=== PATIENT | female | born 1950 | race Two or more races ===

== ENCOUNTER 2018-01-09 13:26 | Outpatient (CLI) | payer MEDICARE ==
[~2018-01-09] VITALS: Ht 154.9 cm; Wt 102.5 kg
[2018-01-09 13:44] VITALS: BP 135/76
[2018-01-09] MEDS ORDERED: SIMVASTATIN40 MG ORAL (13:50)
[2018-01-09] MEDS ORDERED: AMLODIPINE BESYL5 MG ORAL (13:50)
[2018-01-09] MEDS ORDERED: METOPROLOL SUCC50 MG ORAL (13:50)
[2018-01-09] MEDS ORDERED: NORCO 5-325 TA1 EACH ORAL (13:50)
[2018-01-09] MEDS ORDERED: ASPIRIN EC81 MG ORAL (13:50)
--- NOTE | 2018-01-09 14:30 | GI Initial Consult Note ---
History of Present Illness General Date patient seen: Jan 09, 2018 Time patient seen: 14:24 Referring physician: LENNOX Reason for Consultation: ABDOMINAL PAIN Present Illness HPI 67 year old female patient presents today with diffused abdominal pain and nausea. Patient reports that the pain may be food related. She had a colonoscopy back in 2016. Denies any unintentional weight loss or changes in dietary habits. No signs of abuse or neglect. Patient is not fall risk. Home Meds Reported Medications Hydrocodone Bit/Acetaminophen 5-325* ([place] 5-325*) 1 Each Tablet, 1 TAB ORAL Q4H PRN for For Pain, TAB 0 Refills 01/09/18 Simvastatin (ZOCOR) 40 Mg Tablet, 40 MG ORAL BEDTIME, TAB 01/09/18 Aspirin Ec* (ASPIRIN EC*) 81 Mg Tablet.dr, 81 MG ORAL DAILY, TAB 01/09/18 Metoprolol Succinate* (METOPROLOL SUCCINATE*) 50 Mg Tab.er.24h, 50 MG ORAL DAILY , TAB 01/09/18 Amlodipine Besylate* (AMLODIPINE BESYLATE*) 5 Mg Tablet, 5 MG ORAL DAILY, TAB 01/09/18 Med list reviewed/reconciled: Yes Allergies: Coded Allergies: No Known Allergies (Unverified , 01/09/18) Patient History History Provided By: Patient, Medical Record PMH Narrative HTN HLD Sciatica pain Past Surgical History: Abdominal Surgery, unknown Social History: Reports: other - caffiene; Denies: smoking, alcohol use, drug use Review of Systems All Other Systems: negative except mentioned in HPI Physical Exam Vital Signs Date Time Temp Pulse Resp B/P (MAP) Pulse Ox O2 Delivery O2 Flow Rate FiO2 01/09/18 13:44 98.3 63 16 135/76 96 Sp02 EP Interpretation: reviewed, normal General Appearance: well appearing, no apparent distress, alert Head: normocephalic EENT: PERRL/EOMI, normal ENT inspection Neck: supple Respiratory: normal breath sounds, no respiratory distress Cardiovascular: normal rate Gastrointestinal: normal inspection, non tender, soft, normal bowel sounds, non -distended Rectal: deferred Genitourinary: no CVA tenderness Musculoskeletal: normal inspection, back normal Neurologic: normal inspection, alert, oriented x3, responsive Psychiatric: normal inspection, judgement/insight normal, memory normal Skin: normal inspection, normal color, no rash, warm/dry, palpation normal, well hydrated Lymphatic: normal inspection, no adenopathy GI: Plan Problems: (1) Abdominal pain (2) Nausea (3) HTN (hypertension) (4) HLD (hyperlipidemia) (5) Sciatic neuropathy Plan EGD/colonoscopy scheduled 01/23/18. - CLD & (Nulytely/Suprep/Movi-Prep) prep instructions given and acknowledged by patient. - NPO @ [place] day prior procedure explained. Will follow with additional recs post procedure. Seen with Dr. Renteria. Thank you for this patient referral. The patient was seen and examined at bedside and all new and available data was reviewed in the patients chart. I agree with the above findings, impression and plan. (Patient seen earlier today. Signature stamp does not reflect patient encounter time.). - MD Rola [facility] [employer] UNDERWRITER Jan 09, 2018 14:30
== END 2018-01-09 13:56 | disposition home or self-care (01) ==
LOC: PAN 13:26
DX: R10.9 Unspecified abdominal pain (principal); R11.0 Nausea; I10 Essential (primary) hypertension; E78.5 Hyperlipidemia, unspecified; G57.00 Lesion of sciatic nerve, unspecified lower limb
CPT/HCPCS: 99202

== ENCOUNTER 2018-01-23 08:07 | Day surgery (SDC) | payer MEDICARE ==
[2018-01-23] VITALS (9 sets, daily range): BP systolic 109–139; BP diastolic 71–94
[~2018-01-23] VITALS: Ht 154.9 cm; Wt 99.8 kg
--- NOTE | 2018-01-23 06:27 | Anethesia Preoperative Eval ---
Anesthesia Pre-op PMH/ROS General Date of Evaluation: Jan 23, 2018 Time of Evaluation: 06:25 Anesthesiologist: rafiq ASA Score: ASA 3 Mallampati Score Class I : Soft palate, uvula, fauces, pillars visible Class II: Soft palate, uvula, fauces visible Class III: Soft palate, base of uvula visible Class IV: Only hard plate visible Mallampati Classification: Class II Surgeon: sai Diagnosis: abdominal pain, colon screening Surgical Procedure: egd/colonoscopy Anesthesia History: none Family History: no anesthesia problems Allergies: Coded Allergies: No Known Allergies (Unverified , 01/09/18) Medications: see eMAR Patient NPO?: Yes Past Medical History Cardiovascular: Reports: HTN, other - hyperlipidemia, Gastrointestinal/Genitourinary: Reports: other - abdominal pain, nausea Neurologic/Psychiatric: Reports: other - sciatic neuropathy Musculoskeletal/Integumentary: Reports: other Other: obesity Anesthesia Pre-op Phys. Exam Physician Exam Constitutional: NAD Neurologic: CN 2-12 intact Cardiovascular: RRR Respiratory: CTA Gastrointestinal: S/NT/ND Airway Exam Mallampati Score: Class II MO: limited Neck: flexible TMD: 2fb ROM: limited Anesthesia Pre-op A/P Risk Assessment & Plan Assessment: asa3 Plan: mac Status Change Before Surgery: No Pre-Antibiotics Drug: Zakia Wong MD Jan 23, 2018 06:27
[~2018-01-23 08:07] MED LIST: AMLODIPINE BESYL5 MG ORAL; ASPIRIN EC81 MG ORAL; Atropine Inj 1mg/10ml Syr IV PRN; DiphenhydrAMINE 50mg/ml Inj IVP PRN; METOPROLOL SUCC50 MG ORAL; Midazolam 2mg/2ml Inj IVP PRN; NORCO 5-325 TA1 EACH ORAL; SIMVASTATIN40 MG ORAL; fentaNYL 100 mcg/2 mL IV PRN
[2018-01-23] MEDS ORDERED: IBUPROFEN600 MG ORAL (11:14)
[2018-01-23] MEDS ORDERED: Lidocaine 1% MPF 10mg/ml 5ml ONE (11:30)
[2018-01-23] MEDS ORDERED: Atropine Sulfate 0.4mg/ml inj ONE (11:30)
[2018-01-23] MEDS ORDERED: Propofol 200mg/20ml IV ONE (11:30)
--- NOTE | 2018-01-23 11:30 | Pre-Procedure Note/Attestation ---
Pre-Procedure Note/Attestation Complete Prior to Procedure Planned Procedure: not applicable Procedure Narrative: esophagogastroduodenoscopy and colonoscopy Indications for Procedure Pre-Operative Diagnosis: screening colon, GERD Attestation I attest that I discussed the nature of the procedure; its benefits; risks and complications; and alternatives (and the risks and benefits of such alternatives ), prior to the procedure, with the patient (or the patient's legal sales representative adding machines). I attest that, if there was a reasonable possibility of needing a blood transfusion, the patient (or the patient's legal sales representative adding machines) was given the [facility] standardized written summary, pursuant to the [place] Blood Safety Act ([place] Health and Safety Code # 1645, as amended). I attest that I re-evaluated the patient just prior to the surgery and that there has been no change in the patient's H&P, except as documented below: Suhas Renteria MD Jan 23, 2018 11:30
--- NOTE | 2018-01-23 11:31 | Short Stay Surgery H&P ---
History of Present Illness History of Present Illness Chief Complaint see recent consult note HPI Chinyere Gill is a 67 year old female who was admitted on for Abdominal Pain, Colon Screening Patient History Allergies: Coded Allergies: No Known Allergies (Unverified , 01/09/18) Medication History Scheduled Amlodipine Besylate* (Amlodipine Besylate*), 5 MG ORAL DAILY, (Reported) Aspirin Ec* (Aspirin Ec*), 81 MG ORAL DAILY, (Reported) Ibuprofen* (Motrin*), 200 MG ORAL THREE TIMES A DAY, (Reported) Metoprolol Succinate* (Metoprolol Succinate*), 50 MG ORAL DAILY, (Reported) Simvastatin (Zocor), 40 MG ORAL BEDTIME, (Reported) Discontinued Medications Hydrocodone Bit/Acetaminophen 5-325* ([place] 5-325*), 1 TAB ORAL Q4H PRN for For Pain, (Reported) Discontinued Reason: Pt stopped taking med Physical Exam Vital Signs Last Vital Signs Date Time Temp Pulse Resp B/P (MAP) Pulse Ox O2 Delivery O2 Flow Rate FiO2 01/23/18 10:55 97.6 61 18 135/71 97 Room Air Plan Attestation Are the patient's medical conditions optimized for surgery? Suhas Renteria MD Jan 23, 2018 11:31
--- NOTE | 2018-01-23 12:02 | Endoscopy Procedure Note ---
Endoscopy Procedure Note General Indication for Procedure: abd pain Procedures Performed: EGD, colonoscopy Operative Findings/Diagnosis: 3 colon polyps. diverticulosis, gastritis Specimen: yes Pt Tolerated Procedure Well: Yes Estimated Blood Loss: none Anesthesia Anesthesiologist: rafiq Anesthesia: MAC Inserted Devices Implant(s) used?: No Quality Quality of Bowel Preparation: Fair Did scope reach the cecum?: Yes Was there any complications?: No GI Core Measures 50 yrs or older w/o bx or poly: No 10yrs. F/U not recommended: Yes If not recommended, why?: Above average risk 10 yrs. F/U needed: Yes 18 years or older w/prev. colo: Yes <3yrs. since last colonoscopy: No Suhas Renteria MD Jan 23, 2018 12:02
--- NOTE | 2018-01-23 14:18 | Immediate Post-Op Evaluation ---
Immediate Post-Op Evalulation Immediate Post-Op Evalulation Procedure: egd/colonoscopy/bx Date of Evaluation: Jan 23, 2018 Time of Evaluation: 12:19 IV Fluids: 450ml 0.9ns Blood Products: none Estimated Blood Loss: negligible Blood Pressure Systolic: 112 Blood Pressure Diastolic: 73 Pulse Rate: 83 Respiratory Rate: 18 O2 Sat by Pulse Oximetry: 97 Temperature (Fahrenheit): 97.9 Pain Score (1-10): 0 Nausea: No Vomiting: No Complications none Patient Status: awake, reacts, patent Hydration Status: adequate Drug: Zakia Wong MD Jan 23, 2018 14:18
--- NOTE | 2018-01-23 14:19 | 48 Hour Post Anesthesia Eval ---
Post Anesthesia Evaluation Procedure: egd/colonoscopy/bx Date of Evaluation: Jan 23, 2018 Time of Evaluation: 12:21 Blood Pressure Systolic: 121 0: 83 Pulse Rate: 75 Respiratory Rate: 18 Temperature (Fahrenheit): 97.9 O2 Sat by Pulse Oximetry: 98 Airway: patent Nausea: No Vomiting: No Pain Intensity: 0 Hydration Status: adequate Cardiopulmonary Status: stable Mental Status/LOC: patient returned to baseline Post-Anesthesia Complications: none Follow-up care needed: N/A Zakia Shin MD Jan 23, 2018 14:19
--- NOTE | 2018-01-23 20:45 | Procedure Note ---
DATE OF PROCEDURE: 01/23/2018 SURGEON: Suhas Renteria M.D. ANESTHESIOLOGIST: Dr. Jay. REFERRING PHYSICIAN: Areli Quintana M.D. PROCEDURE: Upper endoscopy with biopsy and colonoscopy with snare polypectomy and biopsy. ANESTHESIA: Per Dr. Jay. INSTRUMENT: Olympus adult flexible upper endoscope and colonoscope. INDICATION: Abdominal pain. The procedure, risks, benefits, and possible consequences, including hemorrhage, aspiration, perforation and infection, and alternative treatments, were explained to the patient/legal guardian by Dr. Suhas Renteria and the patient/legal guardian understood and accepted these risks. DESCRIPTION OF PROCEDURE: After informed consent was obtained and the patient was adequately sedated, Olympus upper endoscope was advanced from the mouth into the second portion of the duodenum and retroflexion was performed in the stomach. The patient had evidence of mild atrophic gastritis. Random biopsy from antrum and body was obtained to rule out H. pylori infection. Otherwise, the rest of the upper endoscopic examination grossly looked within normal limit. At this time, the upper endoscope was retrieved. The patient was turned over for colonoscopy. First, rectal exam was performed which was positive for small internal hemorrhoids. Then, the scope was advanced from the rectum into the cecum documented by appendix orifice, ileocecal valve, and right upper quadrant palpation. Then the scope was advanced to the terminal ileum. Quality of prep was fair. I would say about 10% to 20% of the colonic mucosa was not examined given this prep. In the proximal transverse colon, there were 2 sessile polyps, one of them was removed with hot snare polypectomy and the other one with cold snare polypectomy. They were all less than 1 cm in size. There was another polyp in the sigmoid which measured roughly about 6 mm, removed with hot snare polypectomy technique. The patient had some one or two diverticula in the left colon. Retroflexion of rectum showed evidence of small internal hemorrhoids. SUMMARY OF FINDINGS: 1. Gastritis, status post biopsy to rule out H. pylori infection. 2. Three colonic polyps removed, see above for details. 3. Diverticulosis. 4. Small internal hemorrhoids. RECOMMENDATIONS: 1. Follow up biopsy results and treat accordingly. 2. We recommend repeat colonoscopy in three years given 3 polyps. I want to thank Dr. Quintana for this kind referral. Suhas Renteria M.D. DR: Torey JOB#: [id number] CC: Areli Quintana M.D.
--- NOTE | 2018-01-24 15:30 | Cardiology Report ---
APPROVED REPORT EKG Measurement Heart [id number] NM [id number] Normal sinus rhythm Normal ECG
== END 2018-01-23 13:05 | disposition home or self-care (01) ==
LOC: GAS 08:07
DX: Z12.11 Encounter for screening for malignant neoplasm of colon (principal); D12.5 Benign neoplasm of sigmoid colon; D12.3 Benign neoplasm of transverse colon; K64.8 Other hemorrhoids; K57.30 Diverticulosis of large intestine without perforation or abscess without bleeding; K29.50 Unspecified chronic gastritis without bleeding; B96.81 Helicobacter pylori [H. pylori] as the cause of diseases classified elsewhere; G57.00 Lesion of sciatic nerve, unspecified lower limb; I10 Essential (primary) hypertension; E78.5 Hyperlipidemia, unspecified; E66.9 Obesity, unspecified; Z79.82 Long term (current) use of aspirin
CPT/HCPCS: 43239; 45380; 45385; 82962; 93005; J0461; J2704; 94003; 94150

== ENCOUNTER 2018-03-20 13:48 | Outpatient (CLI) | payer MEDICARE ==
[~2018-03-20 13:48] MED LIST changes: -Atropine Inj 1mg/10ml Syr IV PRN; -DiphenhydrAMINE 50mg/ml Inj IVP PRN; +IBUPROFEN600 MG ORAL; -Midazolam 2mg/2ml Inj IVP PRN; -fentaNYL 100 mcg/2 mL IV PRN
[2018-03-20 14:15] VITALS: BP 137/84
--- NOTE | 2018-03-20 14:48 | GI Progress Note ---
Assessment/Plan Problems: (1) H. pylori infection ICD Codes: A04.8 - Other specified bacterial intestinal infections SNOMED: 749860820 (2) Nausea ICD Codes: R11.0 - Nausea SNOMED: 684437928 (3) Abdominal pain ICD Codes: R10.9 - Unspecified abdominal pain SNOMED: 20751441 Status: stable Status Narrative Discussed with Dr. Renteria. Assessment/Plan SUMMARY OF FINDINGS reviewed with patient: 1. Gastritis, status post biopsy to rule out H. pylori infection. 2. Three colonic polyps removed, see above for details. 3. Diverticulosis. 4. Small internal hemorrhoids. RECOMMENDATIONS: 1. Follow up biopsy results and treat accordingly. Biopsy positive for H. pylori Treatment for H. pylori given Return to clinic in 3 months for repeat breath test 2. We recommend repeat colonoscopy in three years given 3 polyps. The patient was seen and examined at bedside and all new and available data was reviewed in the patients chart. I agree with the above findings, impression and plan. (Patient seen earlier today. Signature stamp does not reflect patient encounter time.). - Suhas Renteria MD Subjective Subjective Here for EGD colonoscopy review Denies any abdominal pain Objective Temperature 97.7 Blood pressure 137/84 Pulse 71 97% room air General Appearance: WD/WN, no apparent distress, alert Cardiovascular: normal rate Respiratory/Chest: normal breath sounds, no respiratory distress Abdominal Exam: normal bowel sounds, non tender, soft Extremities: normal range of motion, non-tender Justin Canela NP Mar 20, 2018 14:48
== END 2018-03-20 14:18 | disposition home or self-care (01) ==
LOC: PAN 13:48
DX: A04.8 Other specified bacterial intestinal infections (principal); R11.0 Nausea; R10.9 Unspecified abdominal pain; K29.70 Gastritis, unspecified, without bleeding; K57.90 Diverticulosis of intestine, part unspecified, without perforation or abscess without bleeding; K64.8 Other hemorrhoids
CPT/HCPCS: 99212

== ENCOUNTER 2018-06-22 13:43 | Outpatient (CLI) | payer MEDICARE ==
--- NOTE | 2018-06-22 14:04 | General Progress Note ---
Assessment/Plan Problem List: (1) Diverticulosis ICD Codes: K57.90 - Diverticulosis of intestine, part unspecified, without perforation or abscess without bleeding SNOMED: 261728958 (2) Colon polyps ICD Codes: K63.5 - Polyp of colon SNOMED: 17853989 (3) H. pylori infection ICD Codes: A04.8 - Other specified bacterial intestinal infections SNOMED: 361111982 (4) Abdominal pain ICD Codes: R10.9 - Unspecified abdominal pain SNOMED: 05748159 (5) Sciatic neuropathy ICD Codes: G57.00 - Lesion of sciatic nerve, unspecified lower limb SNOMED: 07593668 (6) HTN (hypertension) ICD Codes: I10 - Essential (primary) hypertension SNOMED: 20132538 Assessment/Plan: fu BT today repeat colon in 2020 Subjective ROS Limited/Unobtainable: Yes Allergies: Coded Allergies: No Known Allergies (Unverified , 01/09/18) Objective General Appearance: alert EENT: normal ENT inspection Neck: supple Cardiovascular: normal rate Respiratory/Chest: lungs clear Abdomen: normal bowel sounds, non tender, soft Extremities: non-tender Suhas Renteria MD June 22, 2018 14:04
[2018-06-22 14:24] VITALS: BP_SYST 147; BP_SYST 164; BP_DIAS 100; BP_DIAS 85
== END 2018-06-22 15:52 | disposition home or self-care (01) ==
LOC: PAN 13:43
DX: K57.90 Diverticulosis of intestine, part unspecified, without perforation or abscess without bleeding (principal); K63.5 Polyp of colon; A04.8 Other specified bacterial intestinal infections; R10.9 Unspecified abdominal pain; G57.00 Lesion of sciatic nerve, unspecified lower limb; I10 Essential (primary) hypertension
CPT/HCPCS: 83013